=== PATIENT | female | born 1995 | race Caucasian/White ===

== ENCOUNTER 2021-10-06 21:17 | Day surgery (SDC) | payer MEDICAID ==
[~2021-10-06] VITALS: Ht 165.1 cm; Wt 100.1 kg
[2021-10-06 21:51] LABS: COLLECTION METHOD CLEAN CATCH
[2021-10-06 22:04] LABS: MUCOUS Present (NOT PRESENT); PH 5 (5-8); URINE APPEARANCE Cloudy (CLEAR/HAZY); URINE BACTERIA Many /hpf (NONE SEEN); URINE BLOOD 3+ (NEGATIVE); URINE COLOR Amber (YELLOW); URINE GLUCOSE Negative (NEGATIVE); URINE KETONE 1+ (NEGATIVE); URINE NITRATE Negative (NEGATIVE); URINE PROTEIN(semi-quant) 2+ (NEGATIVE); URINE RBC >50 /hpf (0-2); URINE UROBILINOGEN Negative (NEGATIVE)
[2021-10-06 22:16] LABS: BASO % 0.2 % (0.0-2.0); GRAN # 11.2 K/mm3 (1.4-6.5); GRAN % 88.2 % (42.2-75.2); HEMATOCRIT 40.5 % (37.0-47.0); HEMOGLOBIN 14.1 g/dl (12.5-16.0); LYMPH # 1.2 K/mm3 (1.2-3.4); LYMPH % 9.1 % (20.0-51.0); MEAN CELL VOLUME 84 fl (80.0-100.0); MEAN CORPUSCULAR HEMOGLOBIN 29 pg (27-31); MEAN CORPUSCULAR HGB CONC 35 g/dl (33.0-37.0); MEAN PLATELET VOLUME 10.3 fl (7.4-10.4); MONO # 0.3 K/mm3 (0.1-0.6); MONO % 2.3 % (1.7-9.3); PLATELET COUNT 310 K/mm3 (130-400); RED BLOOD COUNT 4.85 M/mm3 (4.10-5.30); REDCELL DISTRIBUTION WIDTH-CV 12.2 % (11.5-14.5)
[2021-10-06 22:37] LABS: ALBUMIN 3.9 gm/dL (3.5-5.0); BILIRUBIN,TOTAL 0.5 mg/dL (0.2-1.2); C-REACTIVE PROTEIN 1.51 mg/dL (0.00-0.50); CREATININE, serum 0.78 mg/dL (0.57-1.11); POTASSIUM 3.9 mmol/L (3.5-4.5); TOTAL PROTEIN 7.7 gm/dL (6.2-8.1)
[2021-10-07] VITALS (11 sets, daily range): BP systolic 98–1132; BP diastolic 34–75; PULSE 45–56; TEMP 50–99
[2021-10-07] MEDS ORDERED: SINGULAIR 110 MG/TAB PO (00:43)
[2021-10-07] MEDS ORDERED: PYRIDIUM 100MG100 MG PO (17:21)
[2021-10-08 00:28] VITALS: BP 133/51; PULSE 61; TEMP 98
[2021-10-08 05:00] VITALS: BP 98/44; PULSE 50; TEMP 98
[2021-10-08 07:43] VITALS: BP 102/41; PULSE 56; TEMP 97.8
== END 2021-10-08 10:30 | disposition home health service (06) ==
LOC: COL.ER 21:17 → SURG 10-07 00:19 → COL.ER 10-07 00:19 → SDCO 10-07 00:19 → SURG 10-07 00:19 → SDCO 10-08 10:30 → SURG 10-08 10:30
PROVIDERS: Family Medicine
DX: N13.2 Hydronephrosis with renal and ureteral calculous obstruction (principal); Z86.16 Personal history of COVID-19
CPT/HCPCS: OP; C1769; G0378; J0690; J0696; J1100; J1885; J2270; J2405; J2704; J3010; J7030; J7120; Q9967